=== PATIENT | male | born 2000 | race Caucasian/White ===

== ENCOUNTER 2023-05-18 04:25 | Emergency (ER) | payer OTHER, SELFPAY ==
--- NOTE | ~2023-05-18 | XR_ITS ---
EXAMINATION: XR ANKLE, RIGHT CLINICAL INFORMATION: Fall. Injury. Pain. COMPARISON: None available. TECHNIQUE: AP, lateral, and mortise views of the right ankle. FINDINGS: The bone mineralization is normal. The joint spaces are maintained. There is no fracture. There is soft tissue swelling about the ankle. XR/XR ankle RT min 3V IMPRESSION: Soft tissue swelling. No fracture.
--- NOTE | ~2023-05-18 | XR_ITS ---
EXAMINATION: XR TIBIA AND FIBULA, RIGHT CLINICAL INFORMATION: Right tibia and fibula pain, status post fall COMPARISON: Correlation ankle x-ray 05/18/2023 TECHNIQUE: AP and lateral views of the right tibia and fibula were obtained. FINDINGS: The bone mineralization is normal. No acute fracture or malalignment is seen of the tibia or fibula. The distal tibia and fibula are not included in the [id number], evaluated on the ankle radiographs obtained earlier today. Knee joint articulation is maintained. No abnormal soft tissue calcification. Question edema in the lateral subcutaneous tissues. XR/XR tibia fibula RT 2V IMPRESSION: Partially imaged tibia and fibula. No radiographic evidence of acute fracture or malalignment in the visualized portions of the tibia and fibula.
[2023-05-18 04:56] VITALS: BP 143/91; PULSE 109; RESP 20; TEMP 36.8; O2SAT 98; BMI 49.4
[2023-05-18 05:39] VITALS: BP 139/77; PULSE 101; RESP 14; TEMP 37.3; O2SAT 95
--- NOTE | 2023-05-18 07:07 | ED.LOWEXIN ---
HPI - Extremity Injury (Lower) General Chief Complaint: Extremity Injury, Lower Stated Complaint: lower extremity inj Time Seen by Provider: 05/18/23 06:42 Source: patient Mode of arrival: ambulatory Limitations: no limitations History of Present Illness HPI Narrative: 22- year-old male presents with complaints of right ankle pain and swelling, patient was caring a cardboard box down the steps, he slipped, rolled his ankle and fell down 3 stairs, no head strike or loss of consciousness, he states he ischial did his head, no other injuries. Reports right ankle pain worse with movement better at rest. No numbness or tingling. Not on blood thinners. Able to get up on his own. Came in using crutches that his father had at home. Reporting 8.5/10 pain. Related Data Previous Rx's Medication Instructions Recorded ketorolac 10 mg tablet 10 mg PO TID PRN pain 5 days #15 05/18/23 tabs Allergies Allergy/AdvReac Type Severity Reaction Status Date / Time Unable to Assess Allergy Unverified 05/18/23 07:11 Review of Systems Review of Systems: Constitutional : No Weight loss, No Fever, No Chills, No Fatigue, No Malaise ENT/Mouth : No sore throat, No Rhinorrhea Eyes: No Eye Pain, No Swelling, No Redness Cardiovascular : No Chest Pain, No SOB, No Dyspnea on Exertion, No Orthopnea, No Edema, No Palpitations Respiratory : No Cough, No Sputum, No Wheezing Gastrointestinal : No Nausea, No Vomiting, No Diarrhea, No Constipation, No abdominal Pain, No Hematochezia, No Melena Genitourinary : No Dysuria, No Urinary Frequency, No Hematuria, Musculoskeletal : + joint pain, No Myalgias, + Joint Swelling Skin : No Skin Lesions, No rash Neuro : No Weakness, No Numbness, No Dizziness, No Headache Psych : No Anxiety/Panic, No Depression All other systems reviewed and are negative Yes all other systems are reviewed and are negative [facility] Past Medical History Attestation statement: The following information was validated with the patient. Source: old records reviewed and nursing notes reviewed Social History Social History Smoked in Last 30 Days: No Use of substances other than those prescribed or required for medical reasons: No Advance Directives: No Advance Directives Information Provided: No Physical Exam Vital Signs: Vital Signs: Last Vital Signs Temp 98.0 F 05/18/23 07:29 Pulse 104 H 05/18/23 07:29 Resp 16 05/18/23 07:29 BP 135/77 05/18/23 07:29 Pulse Ox 95 05/18/23 07:29 O2 Del Method Room Air 05/18/23 07:29 BMI result Body Mass Index 49.4 Vital signs stable Appearance: Alert.? Oriented X3.? No acute distress.? Head: Normocephalic, atraumatic, no step-offs or deformities Eyes: Pupils equal, round and reactive to light.? CVS: Normal heart rate and rhythm.? Pulses normal.? Respiratory: No respiratory distress.? Breath sounds normal.? Abdomen: Soft and nontender.? Skin: Skin warm and dry.? Normal skin color.? Normal skin turgor.? Extremities: No lower extremity edema.? No calf ttp. 5/5 strength to bilateral upper and lower extremities tenderness to palpation to medial and lateral malleolus, full range of motion to right ankle however uncomfortable range of motion to right ankle normal left ankle, normal sensation distally capillary refill less than 2 seconds. Normal strength to bilateral ankles, foot. Slight swelling noted to the lateral aspect of right ankle. Normal left ankle in terms of swelling. Neuro: Oriented X 3.? No motor deficit.? No sensory deficit. CN 2-12 intact Course Reevaluation(s) Reevaluation #1: X-ray of right ankle with soft tissue swelling, no fracture. Patient does report his pain goes a little bit higher than what is on imaging therefore ordered tib-fib. 0 placed in Aircast to discharge patient with Toradol. Educated patient on diagnosis and treatment plan, answered all question, patient verbalizes understanding. At this time patient will be discharged home, advised to return with new or worsening symptoms. Educated on worrisome signs and symptoms and when to return. At this time I feel comfortable discharge home. Time: 07:16 Medications Administered Discontinued Medications Generic Name Dose Route Start Last Admin Trade Name Freq PRN Reason Stop Dose Admin Ketorolac Tromethamine 30 mg 05/18/23 07:12 05/18/23 07:22 Ketorolac Tromethamine 15 Mg/Ml Vial IM 05/18/23 07:13 30 mg ONCE ONE Administration Medical Decision Making Medical Decision Making MDM Narrative: 22-year-old male presents with right ankle pain status post rolling his ankle and falling down the stairs, patient reports 8.5/10 pain. No head strike, loss of consciousness, not on blood thinners. Physical exam with tenderness to palpation to medial and lateral malleolus, full range of motion to right ankle however uncomfortable range of motion to right ankle normal left ankle, normal sensation distally capillary refill less than 2 seconds. Normal strength to bilateral ankles, foot. Slight swelling noted to the lateral aspect of right ankle. Normal left ankle in terms of swelling. History and physical exam concerning for sprain or strain. Unlikely fracture, dislocation, neurovascular compromise, threat to [place]. No signs of open fracture. Plan imaging will give Toradol for pain. Will place patient in an Aircast patient does have crutches from home no need to order them from here Differential Diagnosis Differential Diagnoses: The differential diagnosis associated with the presentation includes History and physical exam concerning for sprain or strain. Unlikely fracture, dislocation, neurovascular compromise, threat to [place]. No signs of open fracture. Admission/Observation Consideration of admission/observation: Escalation of care including admission/observation considered unlikely Independent Interpretation I performed an independent interpretation of an: Plain X-Ray Radiology Impression Discussion of test interpretation with radiology: I have reviewed the radiologist's reading. (XR/XR ankle RT min 3V IMPRESSION: Soft tissue swelling. No fracture.) Prescription Management I considered prescription management with: Pain Medication (toradol ) Discharge Plan Discharge Clinical Impression: Ankle sprain and strain Patient Disposition: Home, Self-Care Instructions: Ankle Stirrup Splint (ED), R.I.C.E. Treatment (ED), Ankle Strain (ED) Additional Instructions: Take your medications as prescribed. If you were prescribed antibiotics today, it is important that you take your medication to their entirety, do not skip any doses, do not finish them early. Follow-up with your primary care provider this week. Return to the emergency department with new or worsening symptoms. Such as fevers, chills, chest pain, shortness of breath, nausea, vomiting, dizziness, headache, vision changes, lethargy In case of emergency call 911 Toradol has been sent to your pharmacy, you tolerated this well in the department. Please take this as prescribed do not take this with ibuprofen, or other NSAIDs, do not mix this with alcohol. Side effects of this medication including increased risk for bleeding and possible kidney injury. Prescriptions: New ketorolac 10 mg tablet 10 mg PO TID PRN (Reason: pain) 5 Days Qty: 15 0RF [place]: [facility] [place] [facility] [place]Provider Group] - 1 week Physician,Unknown J [Primary Care Provider] - 2 days Stand Alone Forms: Work/School Release Discharge Date/Time: 05/18/23 08:06
[2023-05-18] MEDS: Ketorolac Tromethamine 15 MG/ML VIAL 30 MG IM (07:22)
[2023-05-18 07:29] VITALS: BP 135/77; PULSE 104; RESP 16; TEMP 36.7; O2SAT 95
== END 2023-05-18 08:06 | disposition home or self-care (01) ==
PROVIDERS: Emergency Provider Emergency Medicine
DX: S93.401A Sprain of unspecified ligament of right ankle, initial encounter (principal); M25.571 Pain in right ankle and joints of right foot; X50.1XXA Overexertion from prolonged static or awkward postures, initial encounter; Y93.9 Activity, unspecified; Y92.89 Other specified places as the place of occurrence of the external cause; Y99.9 Unspecified external cause status
CPT/HCPCS: 73590; 73610; 96372; 99284; 99285; J1885